=== PATIENT | female | born 1945 | race Caucasian/White ===

== ENCOUNTER 2023-11-09 06:00 | Day surgery (SDC) | payer OTHER ==
[2023-11-05 10:33] VITALS: BMI 26.9
[2023-11-09] MEDS ORDERED: ceFAZolin SODIUM 1 GM VIAL ONE ×2 (07:05→07:16)
[2023-11-09] MEDS ORDERED: LIDOCAINE 1%/EPI 1:100000 (20 ML MULTI DOSE VIAL) ONE ×2 (07:06→07:28)
[2023-11-09] MEDS ORDERED: POVIDONE-IODINE 5% OPHTHALMIC PREP 30 ML SOLUTION ONE (07:06)
[2023-11-09] MEDS ORDERED: ERYTHROMYCIN 0.5% OPHTHALMIC OINTMENT 3.5 GM TUBE ONE (07:06)
[2023-11-09] MEDS ORDERED: TETRACAINE 0.5% OPHTH SOLN 2 ML BOTTLE ONE (07:06)
[2023-11-09] MEDS ORDERED: ONDANSETRON 4 MG/2 ML VIAL ONE (07:16)
[2023-11-09] MEDS ORDERED: DEXAMETHASONE SOD PHOSPHATE 4 MG/1 ML VIAL ONE (07:16)
[2023-11-09] MEDS ORDERED: MIDAZOLAM HCL 2 MG/2 ML SINGLE DOSE VIAL ONE (07:16)
[2023-11-09] MEDS ORDERED: PROPOFOL 40 ML ONE ×3 (07:16→09:53)
[2023-11-09] MEDS ORDERED: VANCOMYCIN 1,000 MG VIAL (RESTRICTED TO ID ONLY) ONE (07:52)
[2023-11-09] MEDS ORDERED: CLINDAMYCIN 600MG PREMIX IVPB 600 MG/50 ML BAG IVPB ONE (08:04)
[2023-11-09] MEDS ORDERED: oxyCODONE HCL 5 MG TABLET PO PRN (11:01)
[2023-11-09] MEDS ORDERED: ONDANSETRON 4 MG/2 ML VIAL IVPUSH PRN (11:01)
[2023-11-09] MEDS ORDERED: LACTATED RINGERS SOLUTION 1,000 ML IV SCH (11:15)
[2023-11-09 11:38] VITALS: RESP 16
[2023-11-09] MEDS: ACETAMINOPHEN 325 MG TABLET (FP) ONE (11:49)
[2023-11-09] MEDS ORDERED: ACETAMINOPHEN 325 MG TABLET (FP) PO ONE (12:00)
[2023-11-09 12:48] VITALS: TEMP 98.7
[2023-11-09 12:54] VITALS: BP 110/56; PULSE 92
== END 2023-11-09 12:40 | disposition home or self-care (01) ==
LOC: FASU 06:00
PROVIDERS: ATTEND Ophthalmology
PROC: 08SN0ZZ Reposition Right Upper Eyelid, Open Approach (ICD-10-PCS; 2023-11-09)
PROC: 08SP0ZZ Reposition Left Upper Eyelid, Open Approach (ICD-10-PCS; 2023-11-09)
PROC: 08SN0ZZ Reposition Right Upper Eyelid, Open Approach (ICD-10-PCS; 2023-11-09)
PROC: 08SP0ZZ Reposition Left Upper Eyelid, Open Approach (ICD-10-PCS; principal; 2023-11-09 08:24)
DX: H02.423 Myogenic ptosis of bilateral eyelids (principal); H02.834 Dermatochalasis of left upper eyelid; H02.831 Dermatochalasis of right upper eyelid; J34.89 Other specified disorders of nose and nasal sinuses
CPT/HCPCS: 94760